=== PATIENT | male | born 1975 | race Two or more races ===

== ENCOUNTER 2025-01-29 17:41 | Emergency (ER) | payer MEDICARE, MEDICAID ==
[~2025-01-29] VITALS: Ht 180.3 cm; Wt 87.9 kg
[2025-01-29 17:49] VITALS: TEMP 98.7
[2025-01-29] MEDS: FLUORESCEIN SOD OPTH TEST STRIP RIGHTEYE ONE (19:00)
[2025-01-29] MEDS: TETRACAINE HCL 0.5% OPTH(EYE) SOLN 4ML RIGHTEYE ONE (19:01)
[2025-01-29] MEDS ORDERED: IBUP-1456 PO (19:26)
[2025-01-29] MEDS ORDERED: GENT0.3S10 RIGHTEYE (19:26)
[2025-01-29] MEDS ORDERED: ACYC1TAB3 PO (19:26)
--- NOTE | 2025-01-29 19:29 | ED.PDOC ---
History of Present Illness(SKN HPI Comments 49 year old male presents to ER with complaints of rash x 4 days. Patient states that he started developing a red painful vesicular rash to right side of forehead/face four days ago with associated intermittent headache. He rates his current pain a 7/10. Notes he followed-up with an urgent care provider 2 days ago with regards to his symptoms and was diagnosed with an "allergic reaction" and prescribed " Silvadene cream" and states upon applying the Silvadene cream today, part of the cream dripped down to his right eye and has since been experi encing 7/10 burning sensation to right eye and blurred vision to right eye. Notes he does wear contacts, but took his contacts prior to arrival to ER and brought an "old pair of glasses" with him. Denies body aches, chills, dizziness or any further symptoms/complaints Chief Complaint: Rash Time Seen by MD: 18:16 Primary Care Provider: UNKNOWN History of Present Illness: Nurses Notes, Medications, Allergies Allergies: Coded Allergies: Codeine (Verified Allergy, Unknown, 01/29/25) Sulfamethoxazole w/Trimethoprim (Verified Allergy, Unknown, 01/29/25) Information Source: Patient Mode of Arrival: Ambulatory Past Medical History PAST MEDICAL HISTORY: Arthritis Surgical History: Denies all surgeries Family History Family History: Unknown Social History Smoker: Non-Smoker Alcohol: Denies ETOH Use Drugs: Denies Drug Use Lives In: Home Constitutional: denies: chills, diaphoresis, fatigue, fever, malaise, sweats, weakness, others EENTM: reports: others (As stated in HPI) Respiratory: denies: cough, hemoptysis, orthopnea, SOB at rest, shortness of breath, SOB with excertion, stridor, wheezing, others Cardiovascular: denies: chest pain, dizzy spells, diaphoresis, Dyspnea on exertion, edema, irregular heart beat, left arm pain, lightheadedness, palpitations, PND, syncope, others Gastrointestinal: denies: abdomen distended, abdominal pain, blood streaked bowels, constipated, diarrhea, dysphagia, difficulty swallowing, hematemesis, melena, nausea, poor appetite, poor fluid intake, rectal bleeding, rectal pain, vomiting, others Genitourinary: denies: burning, dysuria, flank pain, frequency, hematuria, incontinence, penile discharge, penile sore, pain, testicle pain, testicle swelling, urgency, others Neurological: denies: dizziness, fainting, headache, left sided numbness, left sided weakness, numbness, paresthesia, pre-existing deficit, right sided numbness, right sided weakness, seizure, speech problems, tingling, tremors, weakness, others Musculoskeletal: denies: back pain, gout, joint pain, joint swelling, muscle pain, muscle stiffness, neck pain, others Integumetry: reports: others (As stated in HPI) Allergic/Immunocompromised: denies: Difficulty Healing, Frequent Infections, Hives, Itching, others Hematologic/Lymphatic: denies: anemia, blood clots, easy bleeding, easy bru ising, swollen glands, others Endocrine: denies: excessive hunger, excessive sweating, excessive thirst, e xcessive urination, flushing, intolerance to cold, intolerance to heat, unexplained weight gain, unexplained weight loss, others Psychiatric: denies: anxiety, bipolar disorder, depression, hopeless, panic disorder, schizophrenia, sleepless, suicidal, others Physical Exam General Appearance: No Apparent Distress HEENT: PERRL/EOMI, Pharynx Normal, TMs Normal, Other ([place] examination right eye- mild subconjunctival injection and minimal yellow drainage noted, no corneal lesion, corneal ulceration or FB noted. Negative Bautista sign. Visual acuity 20/100 on R and L eye and 20/100 using both eyes ) Neck: Full Range of Motion, Non-Tender, Normal Respiratory: Chest Non-Tender, Lungs Clear, No Accessory Muscle Use, No Respiratory Distress, Normal Breath Sounds Cardiovascular: No Murmur, No Gallop, Regular Rate/Rhythm Breast Exam: Deferred Gastrointestinal: NOT DONE Genitalia: Deferred Pelvic: Deferred Rectal: Deferred Extremities: Normal capillary refill, Normal range of motion Neurologic: Alert, No Motor Deficits, Normal Affect, Normal Mood, No Sensory Deficits Cerebellar Function: Normal Reflexes: Normal Skin: Dry, Warm, Other (Erythematous vesicular rash with crusting noted to right side of face that does not cross midline. ) Lymphatic: No Adenopathy Was a procedure done? Was a procedure done?: No Sedation Sedation?: No Differential Diagnosis (INTG) Differential Diagnosis: Cellulitis, Other (Herpes zoster ophthalmicus, herpes zoster oticus) X-Ray, Labs, Meds, VS Vital Signs Date Time Temp Pulse Resp B/P (MAP) Pulse Ox O2 Delivery O2 Flow Rate FiO2 01/29/25 17:49 98.7 116 18 142/111 95 98.7 Fluorescein stain ophthalmic ordered Tetracaine ophthalmic ordered Advised to discontinue use of Silvadene cream Patient advised on following up with Ophthalmology as soon as possible with all risks of not following up discussed Advised to follow up with PCP in 1-2 days Patient verbalized understanding and agreeable with current plan of care Advised to return to ER immediately if symptoms worsen Time of 1ST Reevaluation: 19:02 Reevaluation 1ST: N/A Patient Education/Counseling: Diagnosis, Treatment, Prognosis, Need For Follow Up Family Education/Counseling: No Family Present SEPSIS Sepsis Screen Date sepsis recognized/suspect: Jan 29, 2025 Time Sepsis recognized/suspect: 1748 Recent Procedure: No On Antibiotic Therapy: No Respiratory Rate >20: No Heart Rate >90: Yes Temp<36 C (96.8 F) or >38.3 C: No SBP <90 or MAP <65 mmHG: No New Acute Mental Status Change: No Is the patient on CPAP, BIPAP,: No Physician Orders Tetracaine 0.5% Opth Soln (Tetracaine 0. (01/29/25 19:00) Fluorescein Sodium (Ful-Annemarie) (01/29/25 19:00) Vital Signs Date Time Temp Pulse Resp B/P (MAP) Pulse Ox O2 Delivery O2 Flow Rate FiO2 01/29/25 17:49 98.7 116 18 142/111 95 98.7 Departure 1 Departure Time of Disposition: 19:22 Impression: Primary Impression: Herpes zoster Qualified Codes: B02.9 - Zoster without complications Additional Impression: Bacterial conjunctivitis of right eye Disposition: HOME / SELF CARE / HOMELESS Condition: Stable e-Prescriptions Gentamicin Sulfate (Gentamicin Sulfate) 0.3 % Theresa 2 DROP RIGHTEYE 6XD for 5 Days, #1 BOTTLE 0 Refills Prov: SHAINA LOMAX 01/29/25 Ibuprofen (Ibuprofen) 800 Mg Tab 1 TAB PO TID PRN, #30 TAB 0 Refills Prov: SHAINA LOMAX 01/29/25 Acyclovir (Acyclovir) 800 Mg Tab 800 MG PO 5XD for 7 Days, #35 TAB 0 Refills Prov: SHAINA LOMAX 01/29/25 Discharged With: Significant Other Critical Care Note Critical Care Time?: No Stability Stability form required: No Heart Score Heart Score: Heart Score Response (Comments) Value History N/A 0 EKG N/A 0 Age N/A 0 Risk Factors N/A 0 Troponin N/A 0 Total 0 SHAINA LOMAX Jan 29, 2025 19:29
[2025-01-29 19:44] VITALS: BP 135/98; PULSE 94; RESP 18; O2SAT 99
== END 2025-01-29 19:44 | disposition home or self-care (01) ==
LOC: ER 17:48
DX: B02.9 Zoster without complications (principal); H10.89 Other conjunctivitis; M19.90 Unspecified osteoarthritis, unspecified site; Z88.2 Allergy status to sulfonamides; Z88.1 Allergy status to other antibiotic agents; Z88.5 Allergy status to narcotic agent